=== PATIENT | female | born 2000 | race Caucasian/White ===

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

== ENCOUNTER 2021-04-05 02:05 | Emergency (ER) | payer OTHER ==
[2021-04-05 02:11] VITALS: TEMP 98.2
[2021-04-05] MEDS ORDERED: dexAMETHasone 2 MG TAB PO STA (02:42)
[2021-04-05] MEDS ORDERED: ACETAMINOPHEN TAB 500 MG TAB PO STA (02:42)
[2021-04-05] MEDS ORDERED: KETOROLAC 15 MG/ML 1 ML VIAL IM STA (02:42)
[2021-04-05 02:45] LABS: Appearance,Urine Cloudy (Clear); Bilirubin,Urine Negative (Negative); Blood,Urine Negative (Negative); Calcium Oxalate Crystals,Urine Rare /hpf; Color,Urine Yellow; Glucose,Urine (UA) Negative (Negative); Hyaline Casts,Urine 1 /lpf (0-2); Ketones,Urine Negative (Negative); Leukocyte Esterase,Urine Moderate (Negative); Mucus,Urine Moderate /hpf; Nitrite,Urine Negative (Negative); PH, Urine 5.5 (5.0-8.0); Protein,Urine Trace (Negative); RBC,Urine 2 /hpf (0-5); Specific Gravity,Urine 1.029 (1.001-1.035); Squamous Epithelial Cell,Urine 11 /hpf (0-4); Urobilinogen,Urine <2.0 mg/dL (<2.0); WBC,Urine 31 /hpf (0-5)
--- NOTE | 2021-04-05 02:45 | ED ---
Back Pain HPI - General Chief Complaint: Back Pain/Injury Stated Complaint: Back Pain Time Seen by Provider: 04/05/21 02:23 Source: patient, family, RN notes reviewed, old records reviewed Limitations: no limitations - History of Present Illness Initial Comments: This is a 21-year-old female DF for evaluation patient Dese for evaluation regards to pain. Back pain. History of degenerative disc history of slipped discs. Prior MRIs. Patient occurred bending over doing nails today. She did feel a pop for different pain that she normally has. No loss of bowel or bladder no neurological complaints MD Complaint: back pain, back injury -: hour(s) Similar Symptoms Previously: Yes Place: home Radiation: none Severity: moderate Severity scale (1-10): 7 Quality: sharp Consistency: constant Improves With: none Worsens With: none Context: while lifting, turning/twisting Associated Symptoms: denies other symptoms - Related Data Previous Rx's Medication Instructions Recorded traMADol HCl [Ultram] 50 - 100 mg PO Q6H PRN #20 tab 03/19/17 Allergies Allergy/AdvReac Type Severity Reaction Status Date / Time No Known Allergies Allergy Verified 04/05/21 02:10 Review of Systems ROS Statement: Those systems with pertinent positive or pertinent negative responses have been documented in the HPI. ROS Other: All systems not noted in ROS Statement are negative. Past Medical History Past Medical History: No Reported History Additional Past Medical History / Comment(s): back pain History of Any Multi-Drug Resistant Organisms: None Reported Past Surgical History: No Surgical Hx Reported Past Psychological History: No Psychological Hx Reported Smoking Status: Never smoker Past Alcohol Use History: None Reported Past Drug Use History: None Reported General Exam General appearance: alert, in no apparent distress Head exam: Present: atraumatic, normocephalic, normal inspection Eye exam: Present: normal appearance, PERRL, EOMI. Absent: scleral icterus, conjunctival injection, periorbital swelling ENT exam: Present: normal exam, mucous membranes moist Neck exam: Present: normal inspection. Absent: tenderness, meningismus, lymphadenopathy Respiratory exam: Present: normal lung sounds bilaterally. Absent: respiratory distress, wheezes, rales, rhonchi, stridor Cardiovascular Exam: Present: regular rate, normal rhythm, normal heart sounds. Absent: systolic murmur, diastolic murmur, rubs, gallop, clicks GI/Abdominal exam: Present: soft, normal bowel sounds. Absent: distended, tenderness, guarding, rebound, rigid Extremities exam: Present: normal inspection, full ROM, normal capillary refill. Absent: tenderness, pedal edema, joint swelling, calf tenderness Back exam: Present: normal inspection Neurological exam: Present: alert, oriented X3, CN II-XII intact Psychiatric exam: Present: normal affect, normal mood Skin exam: Present: warm, dry, intact, normal color. Absent: rash Course Vital Signs 04/05/21 04/05/21 02:05 03:10 Temperature 98.2 F Pulse Rate 73 63 Respiratory 20 18 Rate Blood Pressure 127/85 121/74 O2 Sat by Pulse 98 98 Oximetry - Reevaluation(s) Reevaluation #1: 04/05/21 03:40 Medical record is reviewed Reevaluation #2: 04/05/21 03:41 Patient symptoms are improved Reevaluation #3: 04/05/21 03:41 Patient is able to amply without neurological deficit Reevaluation #4: 04/05/21 03:41 Patient family informed of results and questions answered Medical Decision Making - Medical Decision Making 21 female to the ER for evaluation of acute on chronic back pain with history of disc herniation. Patient has no significant neurological findings here in the urine can be discharged home - Lab Data Lab Results 04/05/21 04/05/21 Range/Units 02:32 02:32 Urine Color Yellow Urine Appearance Cloudy H (Clear) Urine pH 5.5 (5.0-8.0) Ur Specific [place] 1.029 (1.001-1.035) Urine Protein Trace H (Negative) Urine Glucose (UA) Negative (Negative) Urine Ketones Negative (Negative) Urine Blood Negative (Negative) Urine Nitrite Negative (Negative) Urine Bilirubin Negative (Negative) Urine Urobilinogen <2.0 (<2.0) mg/dL Ur Leukocyte Esterase Moderate H (Negative) Urine RBC 2 (0-5) /hpf Urine WBC 31 H (0-5) /hpf Ur Squamous Epith Cells 11 H (0-4) /hpf Calcium Oxalate Crystal Rare H (None) /hpf Hyaline Casts 1 (0-2) /lpf Urine Mucus Moderate H (None) /hpf Urine HCG, Qual Not Detected (Not Detectd) Disposition Clinical Impression: Mechanical back pain, Strain of lumbar region, Sciatica Disposition: HOME SELF-CARE Condition: Good Instructions (If sedation given, give patient instructions): Acute Low Back Pain (ED) Is patient prescribed a controlled substance at d/c from ED?: No Referrals: None,Stated [Primary Care Provider] - 1-2 days
[2021-04-05 03:19] VITALS: BP 121/74; PULSE 63; RESP 18
--- NOTE | 2021-04-05 03:27 | CT ---
EXAMINATION TYPE: CT lumbar spine wo con DATE OF EXAM: 04/05/2021 COMPARISON: CT scan 04/05/2021 HISTORY: BACK PAIN CT DLP: 1938.8 mGycm Automated exposure control for dose reduction was used. Lumbar vertebra have normal alignment. Posterior elements are intact. Disc spaces are fairly normal. There is a large posterior disc herniation at L1-2 with encroachment on the spinal canal. There is a relatively adequate canal and not a critical spinal stenosis. There is posterior disc bulging at L4-5. There is no lumbar paraspinal mass. Sacroiliac joints are intact. There is no compression fracture. I see no focal bone destruction. IMPRESSION: There is posterior L4-5 lumbar disc herniation that appears increased compared to old CT scan. There is posterior L1-2 disc herniation unchanged. No significant spinal stenosis. No acute bony abnormalit y.
--- NOTE | 2021-04-05 03:33 | CT ---
EXAMINATION TYPE: CT thoracic spine wo con DATE OF EXAM: 04/05/2021 COMPARISON: None HISTORY: BACK PAIN CT DLP: 1938.8 mGycm Automated exposure control for dose reduction was used. Images obtained from T1 to T12 without contrast. The thoracic vertebra have normal alignment. Posterior elements are intact. There is no compression f racture. Disc spaces are normal. There is no thoracic paraspinal mass. I see no bony destructive proc ess. Facet joints appear intact. IMPRESSION: Normal CT scan of the thoracic spine.
== END 2021-04-05 03:51 | disposition home or self-care (01) ==
LOC: EC 02:05
DX: S39.012A Strain of muscle, fascia and tendon of lower back, initial encounter (principal); X50.0XXA Overexertion from strenuous movement or load, initial encounter
CPT/HCPCS: 81001; 81025; 87086; 72128; 72131; 99284; 96372; J8540; J1885

== ENCOUNTER → 2021-05-01 | Outpatient (CLI) | payer OTHER ==
[2021-05-02 00:57] LABS: Calcium 9.3 mg/dL (8.7-10.3)
== END | disposition home or self-care (01) ==
LOC: LABWHC1 14:21
PROVIDERS: ATTEND Psychiatry & Neurology Pain Medicine
DX: E55.9 Vitamin D deficiency, unspecified (principal)
CPT/HCPCS: 36415; 82306; 82310; 83970

== ENCOUNTER 2023-02-05 03:12 | Emergency (ER) | payer OTHER, BC ==
[2023-02-05 03:17] VITALS: BP 149/89; PULSE 78; RESP 16; TEMP 97.8
[2023-02-05] MEDS ORDERED: AMOXIC-POT CLAV 875MG STARTER PACK 2 TAB BTL PO STA (06:46)
--- NOTE | 2023-02-05 06:50 | ED ---
ENT HPI - General Chief complaint: ENT Stated complaint: Infected Tongue Piercing Time Seen by Provider: 02/05/23 06:08 Source: patient, RN notes reviewed Mode of arrival: ambulatory Limitations: no limitations - History of Present Illness Initial comments: 23-year-old female presents emergency Department chief complaint of possible infection of her tongue piercing. Patient states this was performed 10 days ago she noticed some drainage around that comes and goes. She's been using mouth rinses with no improvement. Denies any fevers or chills denies any increasing discomfort or swelling. - Related Data Previous Rx's Medication Instructions Recorded traMADol HCl [Ultram] 50 - 100 mg PO Q6H PRN #20 tab 03/19/17 Amoxic-Pot Clav 875-125Mg 1 tab PO Q12HR #20 tab 02/05/23 [Augmentin 875-125] Allergies Allergy/AdvReac Type Severity Reaction Status Date / Time No Known Allergies Allergy Verified 04/05/21 02:10 Review of Systems ROS Statement: Those systems with pertinent positive or pertinent negative responses have been documented in the HPI. ROS Other: All systems not noted in ROS Statement are negative. Past Medical History Past Medical History: No Reported History Additional Past Medical History / Comment(s): back pain History of Any Multi-Drug Resistant Organisms: None Reported Past Surgical History: No Surgical Hx Reported Past Psychological History: No Psychological Hx Reported Smoking Status: Never smoker Past Alcohol Use History: Occasional Past Drug Use History: None Reported General Exam Limitations: no limitations General appearance: alert, in no apparent distress Head exam: Present: atraumatic, normocephalic, normal inspection Eye exam: Present: normal appearance, PERRL, EOMI. Absent: scleral icterus, conjunctival injection, periorbital swelling ENT exam: Present: mucous membranes moist. Absent: normal oropharynx (10 piercing noted there is no current drainage there is minimal erythema at the borders there is no CVAT swelling or discoloration.) Neck exam: Present: normal inspection, full ROM. Absent: tenderness, meningismus, lymphadenopathy Respiratory exam: Present: normal lung sounds bilaterally. Absent: respiratory distress, wheezes, rales, rhonchi, stridor Cardiovascular Exam: Present: regular rate, normal rhythm, normal heart sounds. Absent: systolic murmur, diastolic murmur, rubs, gallop, clicks Course Vital Signs 02/05/23 03:14 Temperature 97.8 F Pulse Rate 78 Respiratory 16 Rate Blood Pressure 149/89 O2 Sat by Pulse 98 Oximetry Medical Decision Making - Medical Decision Making Was pt. sent in by a medical professional or institution ([facility] Blood, MEDICAL CODING TECHNICIAN, urgent care, hospital, or prison...) When possible be specific @ -No Did you speak to anyone other than the patient for history (EMS, parent, family, police, friend...)? What history was obtained from this source @ -No Did you review nursing and triage notes (agree or disagree)? Why? @ -I reviewed and agree with nursing and triage notes Were old charts reviewed (outside hosp., previous admission, EMS record, old EKG, old radiological studies, urgent care reports/EKG's, prison records)? Report findings @ -No old charts were reviewed Differential Diagnosis (chest pain, altered mental status, abdominal pain women, abdominal pain men, vaginal bleeding, weakness, fever, dyspnea, syncope, headache, dizziness, GI bleed, back pain, seizure, CVA, palpatations, mental health, musculoskeletal)? @ -tongue piercing infection,tongue swelling EKG interpreted by me (3pts min.). @ -None X-rays interpreted by me (1pt min.). @ -None done CT interpreted by me (1pt min.). @ -None done U/S interpreted by me (1pt. min.). @ -None done What testing was considered but not performed or refused? (CT, X-rays, U/S, labs)? Why? @ -None What meds were considered but not given or refused? Why? @ -None Did you discuss the management of the patient with other professionals (professionals i.e. [facility] Blood, MEDICAL CODING TECHNICIAN, lab, RT, psych nurse, social studies department chair, cigarette making machine catcher, teacher, custodial officer, briefcase sewer)? Give summary @ -No Was smoking cessation discussed for >3mins.? @ -No Was critical care preformed (if so, how long)? @ -No Were there social determinants of health that impacted care today? How? (Homelessness, low income, unemployed, alcoholism, drug addiction, transportation, low edu. Level, literacy, decrease access to med. care, alf, rehab)? @ -No Was there de-escalation of care discussed even if they declined (Discuss DNR or withdrawal of care, Hospice)? DNR status @ -No What co-morbidities impacted this encounter? (DM, HTN, Smoking, COPD, CAD, Cancer, CVA, ARF, Chemo, Hep., AIDS, mental health diagnosis, sleep apnea, morbid obesity)? @ -None Was patient admitted / discharged? Hospital course, mention meds given and route, prescriptions, significant lab abnormalities, going to OR and other pertinent info. @ -Discharged there is no significant infection patient has been complaining of purulent drainage which may be partial from healing patient will be placed on Augmentin prophylaxis she's been describing this drainage she is advised if symptoms worsen she needs to remove her tongue piercing and have her recheck. Undiagnosed new problem with uncertain prognosis? @ -No Drug Therapy requiring intensive monitoring for toxicity (Heparin, Nitro, Insulin, Cardizem)? @ -No Were any procedures done? @ -No Diagnosis/symptom? @ -tongue piercing infection Acute, or Chronic, or Acute on Chronic? @ -acute Uncomplicated (without systemic symptoms) or Complicated (systemic symptoms)? @ -uncomplicated Side effects of treatment? @ -No Exacerbation, Progression, or Severe Exacerbation? @ -No Poses a threat to life or bodily function? How? (Chest pain, [place], [place], pneumonia, PE, COPD, DKA, ARF, appy, cholecystitis, CVA, Diverticulitis, Homicidal, Suicidal, threat to staff... and all critical care pts) @ -No Disposition Clinical Impression: Pierced tongue infection Disposition: HOME SELF-CARE Condition: Stable Additional Instructions: Please return to the Emergency Department if symptoms worsen or any other concerns. Prescriptions: Amoxic-Pot Clav 875-125Mg [Augmentin 875-125] 1 tab PO Q12HR #20 tab Is patient prescribed a controlled substance at d/c from ED?: No Referrals: None,Stated [Primary Care Provider] - 1-2 days Time of Disposition: 06:50
== END 2023-02-05 07:23 | disposition home or self-care (01) ==
LOC: EC 03:12
DX: K14.0 Glossitis (principal)
CPT/HCPCS: 99283